=== PATIENT | male | born 1965 | race Caucasian/White ===

== ENCOUNTER → 2018-01-30 10:04 | Outpatient (CLI) | payer OTHER, SELFPAY ==
--- NOTE | 2018-01-30 | DI.RAD.S_ITS ---
PROCEDURE: XR CHEST 2V INDICATIONS: PROMINANCE OF LEFT ANT PROX RIB 4 TECHNIQUE: 2 views of the chest were acquired. COMPARISON: None. FINDINGS: Surgical changes and devices: None. Lungs and pleura: No pleural effusions or pneumothorax. Lungs are clear. Mediastinum: Mediastinal contours are normal. Heart size is normal. Bones and chest wall: No suspicious bony abnormalities. Soft tissues appear unremarkable. IMPRESSION: No acute disease. Dictated by: Charles Alexander M.D. on 01/30/2018 at 15:02 Approved by: Charles Alexander M.D. on 01/30/2018 at 15:03
== END ==
PROVIDERS: PCP Family Medicine; Visit Provider Family Medicine
DX: M95.4 Acquired deformity of chest and rib (principal)
CPT/HCPCS: 71046

== ENCOUNTER 2018-12-05 10:28 | Emergency (ER) | payer OTHER, SELFPAY ==
[2018-12-05 10:31] VITALS: BP 140/79; PULSE 66; RESP 14; TEMP 36.7; O2SAT 98
--- NOTE | 2018-12-05 11:01 | DI.CT.S_ITS ---
PROCEDURE: CT HEAD/BRAIN WO CON INDICATIONS: new onset dizzyness. No focal weakness. TECHNIQUE: Noncontrast 4.5 mm thick angled axial sections acquired from the foramen magnum to the vertex, with coronal and sagittal reformats. For radiation dose reduction, the following was used: automated exposure control, adjustment of mA and/or kV according to patient size. COMPARISON: None. FINDINGS: Image quality: Excellent. CSF spaces: Basal cisterns are patent. No extra-axial fluid collections. Ventricles are normal in size and shape. Brain: No midline shift. No intracranial masses or hemorrhage. Novoa-white matter interface is normal. Minimal atherosclerotic calcifications of the intracranial segments of the internal carotid arteries. Skull and face: Calvarium and visualized facial bones are intact, without suspicious lesions. Sinuses: Visualized sinuses and mastoids are clear. IMPRESSION: CT head without acute intracranial abnormalities. No mass, or mass effect. Dictated by: Cristian Kulkarni M.D. on 12/05/2018 at 10:53 Approved by: Cristian Kulkarni M.D. on 12/05/2018 at 10:54
[2018-12-05 11:52] VITALS: BP 138/87; PULSE 60; RESP 12
[2018-12-05] MEDS: SODIUM CHLORIDE 0.9% 1,000 ML 1000 ML IV (11:53)
[2018-12-05] MEDS: ONDANSETRON 4 MG/2 ML INJ IV (11:53)
[2018-12-05 12:14] LABS: Add Manual Diff / Slide Review NO; Basophils Absolute Auto 0 /uL (0-100); Basophils Percent Auto 0.5 % (0-2); Eosinophils Absolute Auto 200 /uL (0-450); Eosinophils Percent Auto 2.6 % (2-4); Hematocrit 53.9 % (41-53); Hemoglobin 18.2 g/dL (13.5-17.5); Lymphocytes Absolute Auto 1200 /uL (1100-4500); Lymphocytes Percent Auto 16.6 % (25-40); Mean Corpuscular HGB Conc 33.8 % (30-36); Mean Corpuscular Hemoglobin 30.6 PG (26-34); Mean Corpuscular Volume 90.5 fL (80-100); Monocytes Absolute Auto 600 /uL (0-900); Monocytes Percent Auto 8.6 % (3-14); Neutrophils Absolute Auto 5000 /uL (1500-7000); Neutrophils Percent Auto 71.7 % (50-75); Platelet Count 138 X10^3/uL (150-400); Red Blood Cell Count 5.96 X10^6/uL (4.5-5.9); Red Cell Distribution Width 13.9 % (11.6-14.8)
[2018-12-05 12:30] VITALS: BP 143/88; PULSE 58; RESP 14
[2018-12-05] MEDS: MECLIZINE HCL 12.5 MG TABLET 25 MG PO (12:32)
[2018-12-05 13:22] LABS: Alanine Aminotransferase 32 IU/L (21-72); Albumin 4.2 g/dL (3.5-5.0); Albumin Globulin Ratio 1.4 (1.0-2.8); Alkaline Phosphatase 29 U/L (38-126); Aspartate Aminotransferase 31 IU/L (17-59); Bilirubin Total 0.9 mg/dL (0.2-1.3); Blood Urea Nitrogen 16 mg/dL (9-20); Calcium 9.2 mg/dL (8.4-10.2); Carbon Dioxide 25 mmol/L (22-32); Chloride 102 mmol/L (98-107); Estimated Glomerular Filt Rate > 60.0 mL/min (>60); Globulin 3.1 g/dL (1.7-4.1); Glucose 96 mg/dL (70-100); HEMOLYSIS < 15 (0-50); Potassium 3.7 mmol/L (3.4-5.1); Sodium 138 mmol/L (137-145); Total Protein 7.3 g/dL (6.3-8.2)
[2018-12-05 13:33] LABS: Troponin I < 0.012 ng/mL (0.01-0.034)
--- NOTE | 2018-12-05 22:31 | ED.DIZZY ---
HPI - Dizziness <EVIE Lee - Last Filed: 12/05/18 22:52> General Chief Complaint: Dizziness Stated Complaint: Dizziness- sent from [facility] Time Seen by Provider: 12/05/18 12:11 Source: patient Mode of arrival: ambulatory Limitations: no limitations History of Present Illness HPI Narrative: This is a 53-year-old male, former smoker, who presents to ED with dizziness. Patient reports dizziness, spinning sensation with balance problem which got progressively worse today. Patient reports nausea as associated symptoms but denies chest pain, breathing difficulty, vomiting. Patient denies recent ear infection or upper respiratory infection. He reports has chronic problem with ear/nose/throat and has been seeing his provider for this. 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 Patient denies vision change, speech difficulty, weakness to 1 side side of body, facial droops, headache, or fever. Patient once had vertigo in the past when he had ear infection. Patient reports the dizziness/spinning sensation gets worse with changing with position and head movements. Related Data Home Medications Medication Instructions Recorded Confirmed aspirin [Adult Low Dose Aspirin] 81 mg PO DAILY 12/05/18 12/05/18 atorvastatin 20 mg PO DAILY 12/05/18 12/05/18 bupropion HCl (smoking deter) 150 mg PO BID 12/05/18 12/05/18 lisinopril 20 mg PO DAILY 12/05/18 12/05/18 Previous Rx's Medication Instructions Recorded meclizine 25 mg PO BID-QID PRN #10 tab 12/05/18 ondansetron 4 mg PO Q6-8H PRN #7 tab 12/05/18 Allergies Allergy/AdvReac Type Severity Reaction Status Date / Time Penicillins Allergy Unknown Verified 12/05/18 10:35 codeine AdvReac Intermediate Vomiting Verified 12/05/18 10:35 Milk Containing Products AdvReac Intermediate Gastrointestinal Verified 12/05/18 10:35 Upset Review of Systems <EVIE Lee - Last Filed: 12/05/18 22:52> Review of Systems Narrative: General: Denies fever, chills, fatigue, malaise, sweats. HEENT: Denies sinus pain, ear pain, sore throat, difficulty swallowing. Reports dizziness. Respiratory: Denies dyspnea, cough, wheezing, hemoptysis, sputum. Cardiovascular: Denies chest pain, palpitations, orthopnea, edema. Gastrointestinal: Reports nausea but no vomiting Denies abdominal pain, diarrhea, constipation, melena. : Denies dysuria, frequency, incontinence, hematuria, urinary retention. Musculoskeletal: Denies weakness, joint pain or bony pain. Skin: Denies rash, skin lesions, or other. Neurologic: Denies weakness, headache, numbness, change in speech, confusion, seizures, incoordination. Psychiatric: No concerning psychosocial issues. 12-point review of systems is negative except for those stated above. PFSH <EVIE Lee - Last Filed: 12/05/18 22:52> Surgical History H/O sinus surgery (Acute) History of tonsillectomy and adenoidectomy (Acute) Social History Smoking Status: Current every day smoker Social History Smoking Status: Former smoker Exam <EVIE Lee - Last Filed: 12/05/18 22:52> Narrative Exam Narrative: GEN: Alert, oriented x 3, well appearing and nourished, and in no acute distress. Head: Normal cephalic, atraumatic. No scalp or temporal tenderness, palpable mass or rash. EYES: Pupils are equal, round, and reactive to light and accommodation. Extraocular muscles are intact bilaterally. There is no subconjunctival hemorrhage, exudate and sclera non-icteric. ENT: Bilateral auditory canals and tympanic membranes clear. Hearing grossly intact. Nose without bleeding, purulent discharge, septal hematoma or deviation. Turbinate without erythema or swelling. Facial sinuses nontender to palpate. Mucous membrane moist, no mucosal lesion. Throat without erythema, tonsillar hypertrophy or exudate. Uvula in midline, airway patent. Neck: Trachea in midline. No JVD, non-tender without lymphadenopathy. No masses or thyroid megaly. Supple, non-tender and no meningeal signs. CARDIAC: Normal regular rate and rhythm without murmurs, gallops, or rubs. No chest wall tenderness. No peripheral edema, cyanosis or pallor. Capillary refill is less than 2 seconds. No carotid bruits. RESPIRATORY: Lungs are cleat to auscultate bilaterally. No cough, wheezes, rales, or rhonchi. No stridor, respiratory distress, increase work of breathing, or accessary muscle used. ABD: Abdomen soft, nontender and non-distended. No guarding or rebound tenderness to palpate. Bowel sounds are normal in all 4 quadrants. There is no palpable masses or organomegaly. EXT: Full painless ROM of all extremities with no loss of sensation, strength, effusion or edema. SKIN: Warm, dry, normal color for patient. No erythema, lesions or rash. BACK: Nontender without deformity or crepitance. No flank tenderness. NEUROLOGICAL: Alert and oriented to place, time and person. No facial droops, dysphasia. CN II-XII intact. Strength and sensation symmetric and intact throughout. Reflexes 2+ throughout. Cerebellar testing normal. PSYCHIATRIC: Good judgement and reason, without hallucinations, abnormal affect or abnormal behaviors during the examination. Initial Vital Signs Initial Vital Signs: Vital Signs Temperature 98.1 F 12/05/18 10:31 Pulse Rate 66 12/05/18 10:31 Respiratory Rate 14 12/05/18 10:31 Blood Pressure 140/79 12/05/18 10:31 Pulse Oximetry 98 12/05/18 10:31 <Paige Reyna DO - Last Filed: 12/06/18 19:14> Initial Vital Signs Initial Vital Signs: Vital Signs Temperature 98.1 F 12/05/18 10:31 Pulse Rate 66 12/05/18 10:31 Respiratory Rate 14 12/05/18 10:31 Blood Pressure 140/79 12/05/18 10:31 Pulse Oximetry 98 12/05/18 10:31 Scores <EVIE Lee - Last Filed: 12/05/18 22:52> GCS Eladio coma scale eye opening: Spontaneous Eladio coma scale verbal response: Orientated Napoleon coma scale motor response: Obey commands Eladio coma scale total score: 15 NIH Stroke Scale Level of Conciousness: Alert, keenly responsive Ask month/age: Answers both questions correctly. Open/close eyes, close hand: Performs both tasks correctly Best gaze horizontal: Normal Visual ribeiro: No visual loss Facial palsy: Normal symetrical movement Left arm drift: No drift for full 10 sec Right arm drift: No drift for full 10 sec Left leg drift: No drift for full 10 sec Right leg drift: No drift for full 10 sec Limb ataxia: Absent Sensory on face/arms/legs: Normal, no sensory loss Best language: No aphasia, normal Dysarthria: Normal Extinction or inattention: No abnormality Total NIH Stroke scale score: 0 Course <EVIE Lee - Last Filed: 12/05/18 22:52> Orders Ordered: Discontinued Medications Sodium Chloride (Normal Saline 0.9%) 1,000 mls @ 1,000 mls/hr IV BOLUS ONE Stop: 12/05/18 12:01 Last Infusion: 12/05/18 13:25 Dose: 0 mls/hr Documented by: Admin: 12/05/18 11:53 Dose: 1,000 mls/hr Documented by: HOMERO Meclizine HCl (Antivert) 25 mg PO NOW ONE Stop: 12/05/18 12:28 Last Admin: 12/05/18 12:32 Dose: 25 mg Documented by: HOMERO Ondansetron HCl (Zofran) 4 mg IV NOW ONE Stop: 12/05/18 11:03 Last Admin: 12/05/18 11:53 Dose: 4 mg Documented by: HOMERO <Paige Reyna DO - Last Filed: 12/06/18 19:14> Orders Ordered: Discontinued Medications Sodium Chloride (Normal Saline 0.9%) 1,000 mls @ 1,000 mls/hr IV BOLUS ONE Stop: 12/05/18 12:01 Last Infusion: 12/05/18 13:25 Dose: 0 mls/hr Documented by: Admin: 12/05/18 11:53 Dose: 1,000 mls/hr Documented by: HOMERO Meclizine HCl (Antivert) 25 mg PO NOW ONE Stop: 12/05/18 12:28 Last Admin: 12/05/18 12:32 Dose: 25 mg Documented by: HOMERO Ondansetron HCl (Zofran) 4 mg IV NOW ONE Stop: 12/05/18 11:03 Last Admin: 12/05/18 11:53 Dose: 4 mg Documented by: HOMERO MDM - Dizziness <EVIE Lee - Last Filed: 12/05/18 22:52> Differential Diagnosis Differential diagnosis: Likely benign paroxysmal positional vertigo, orthostatic hypotension and cerebrovascular accident Medical Records Attestation: I reviewed the patient's medical records. Lab Data Attestation: I reviewed the patient's lab results. Result diagrams: 12/05/18 11:45 12/05/18 11:45 Labs: Lab Results 12/05/18 12/05/18 Range/Units 11:45 11:45 WBC 7.0 (4.5-11.0) X10^3/uL RBC 5.96 H (4.5-5.9) X10^6/uL Hgb 18.2 H (13.5-17.5) g/dL Hct 53.9 H (41-53) % MCV 90.5 (80-100) fL MCH 30.6 (26-34) PG MCHC 33.8 (30-36) % RDW 13.9 (11.6-14.8) % Plt Count 138 L (150-400) X10^3/uL Neut % (Auto) 71.7 (50-75) % Lymph % (Auto) 16.6 L (25-40) % Sunflower % (Auto) 8.6 (3-14) % Eos % (Auto) 2.6 (2-4) % Baso % (Auto) 0.5 (0-2) % Neut # (Auto) 5000 (0008-3674) /uL Lymph # (Auto) 1200 (7778-9990) /uL Sunflower # (Auto) 600 (0-900) /uL Eos # (Auto) 200 (0-450) /uL Baso # (Auto) 0 (0-100) /uL Sodium 138 (137-145) mmol/L Potassium 3.7 (3.4-5.1) mmol/L Chloride 102 (98-107) mmol/L Carbon Dioxide 25 (22-32) mmol/L BUN 16 (9-20) mg/dL Creatinine 0.80 (0.66-1.25) mg/dL Estimated GFR > 60.0 (>60) mL/min BUN/Creatinine Ratio 20.0 (6-22) Glucose 96 (70-100) mg/dL Calcium 9.2 (8.4-10.2) mg/dL Total Bilirubin 0.9 (0.2-1.3) mg/dL AST 31 (17-59) IU/L ALT 32 (21-72) IU/L Alkaline Phosphatase 29 L (38-126) U/L Troponin I < 0.012 (0.01-0.034) ng/mL Total Protein 7.3 (6.3-8.2) g/dL Albumin 4.2 (3.5-5.0) g/dL Globulin 3.1 (1.7-4.1) g/dL Albumin/Globulin Ratio 1.4 (1.0-2.8) Urine Dip Bedside Urine Glucose Negative Bedside Urine Bilirubin - Negative Bedside Urine Ketone + 15 Urine Specific [place] 1.015 Bedside Urine Occult Blood - Negative Bedside Urine pH 6.0 Bedside Urine Protein - Negative Bedside Urine Urobilinogen - Negative Bedside Urine Nitrite - Negative Bedside Urine Leukocytes - Negative Esterase Imaging Data CT scan - head: Radiologist's impression: [address] [address] [address] Scan Report Signed Patient: Venkat Wood [facility]#: [id number] : 1965Acct:[id number] Age/Sex: 53 / MDate of Service: 12/05/18 Loc: ED Accession Number: [id number] Procedure: CT head/brain wo con Ordering Provider: Andrea Colunga PROCEDURE: CT HEAD/BRAIN WO CON INDICATIONS: new onset dizzyness. No focal weakness. TECHNIQUE: Noncontrast 4.5 mm thick angled axial sections acquired from the foramen magnum to the vertex, with coronal and sagittal reformats. For radiation dose reduction, the following was used: automated exposure control, adjustment of mA and/or kV according to patient size. COMPARISON: None. FINDINGS: Image quality: Excellent. CSF spaces: Basal cisterns are patent. No extra-axial fluid collections. Ventricles are normal in size and shape. Brain: No midline shift. No intracranial masses or hemorrhage. Novoa-white matter interface is normal. Minimal atherosclerotic calcifications of the intracranial segments of the internal carotid arteries. Skull and face: Calvarium and visualized facial bones are intact, without suspicious lesions. Sinuses: Visualized sinuses and mastoids are clear. IMPRESSION: CT head without acute intracranial abnormalities. No mass, or mass effect. Dictated by: Cristian Kulkarni M.D. on 12/05/2018 at 10:53 Approved by: Cristian Kulkarni M.D. on 12/05/2018 at 10:54 ECG Data Attestation: I personally reviewed and interpreted this ECG as follows: Prior ECG tracings: not available for review Interpretation: Sinus Seth rate at 58. Normal [place]. No ST elevation or depression. LV hypertrophy. MDM Narrative Medical decision making narrative: This patient presents to ED with vertigo symptoms that started last night which progressively got worsen with nausea. He does not exhibit focal neural deficit and and NIH score was 0 with GCS 15. Patient does not endorse headache, sensation deficit or vision change. EKG was sinus bradycardia rate of [address] elevation or depression. Cardiac enzymes were negative. Electrolyte was unremarkable. The patient's H&H was mildly elevated and he is currently being evaluated for elevated H&H and low platelet level. Head CT shows no acute findings such as mass or bleeding. Patient was medicated with Zofran, IV hydration and meclizine. Patient was able to ambulate to the bathroom in stable gait after the treatment. Urine test shows no infection. Findings were discussed with patient and patient is being discharged to home with vertigo and discharged to home with meclizine and Zofran. Return precautions were discussed with the patient and advised to follow with primary care physician if vertigo symptoms persists for possible referral to ENT specialist or physical therapist. Patient verbalized the understanding and agrees with treatment plan. <Paige Reyna, DO - Last Filed: 12/06/18 19:14> Lab Data Labs: Lab Results 12/05/18 12/05/18 Range/Units 11:45 11:45 WBC 7.0 (4.5-11.0) X10^3/uL RBC 5.96 H (4.5-5.9) X10^6/uL Hgb 18.2 H (13.5-17.5) g/dL Hct 53.9 H (41-53) % MCV 90.5 (80-100) fL MCH 30.6 (26-34) PG MCHC 33.8 (30-36) % RDW 13.9 (11.6-14.8) % Plt Count 138 L (150-400) X10^3/uL Neut % (Auto) 71.7 (50-75) % Lymph % (Auto) 16.6 L (25-40) % Sunflower % (Auto) 8.6 (3-14) % Eos % (Auto) 2.6 (2-4) % Baso % (Auto) 0.5 (0-2) % Neut # (Auto) 5000 (6275-4423) /uL Lymph # (Auto) 1200 (4537-0303) /uL Sunflower # (Auto) 600 (0-900) /uL Eos # (Auto) 200 (0-450) /uL Baso # (Auto) 0 (0-100) /uL Sodium 138 (137-145) mmol/L Potassium 3.7 (3.4-5.1) mmol/L Chloride 102 (98-107) mmol/L Carbon Dioxide 25 (22-32) mmol/L BUN 16 (9-20) mg/dL Creatinine 0.80 (0.66-1.25) mg/dL Estimated GFR > 60.0 (>60) mL/min BUN/Creatinine Ratio 20.0 (6-22) Glucose 96 (70-100) mg/dL Calcium 9.2 (8.4-10.2) mg/dL Total Bilirubin 0.9 (0.2-1.3) mg/dL AST 31 (17-59) IU/L ALT 32 (21-72) IU/L Alkaline Phosphatase 29 L (38-126) U/L Troponin I < 0.012 (0.01-0.034) ng/mL Total Protein 7.3 (6.3-8.2) g/dL Albumin 4.2 (3.5-5.0) g/dL Globulin 3.1 (1.7-4.1) g/dL Albumin/Globulin Ratio 1.4 (1.0-2.8) Urine Dip Bedside Urine Glucose Negative Bedside Urine Bilirubin - Negative Bedside Urine Ketone + 15 Urine Specific [place] 1.015 Bedside Urine Occult Blood - Negative Bedside Urine pH 6.0 Bedside Urine Protein - Negative Bedside Urine Urobilinogen - Negative Bedside Urine Nitrite - Negative Bedside Urine Leukocytes - Negative Esterase Discharge Plan Departure Patient Disposition: Home Clinical Impression: Vertigo Discharge Date/Time: 12/05/18 14:29 Instructions: DI for Vertigo Activity Restrictions/Additional Instructions: You have been diagnosed with [dizziness and vertigo. The head CT is negative, EKG was normal and blood tests were unremarkable]. What to do: *Take your medications as directed. Please take meclizine and Zofran as needed for dizziness and nausea. *Follow up with your primary care provider in 2-3 days, call for an appointment. Let them know you were seen in the ED and that we asked you to be seen in follow up. *Return to ED if you have any new, worsening, or concerning symptoms, such as [increasing dizziness, spinning sensation, chest pain, breathing difficulty, unable to tolerate fluids, weakness to 1 side of body, speech difficulty, facial droops, vision change, or any acute concerns]. Prescriptions: New meclizine 25 mg tablet 25 mg PO BID-QID PRN (Reason: dizziness) Qty: 10 RF: 0 ondansetron 4 mg tablet,disintegrating 4 mg PO Q6-8H PRN (Reason: nausea and vomiting) Qty: 7 RF: 0 No Action atorvastatin 20 mg tablet 20 mg PO DAILY RF: 0 lisinopril 20 mg tablet 20 mg PO DAILY RF: 0 aspirin [Adult Low Dose Aspirin] 81 mg Tablet,Delayed Release (Dr/Ec) 81 mg PO DAILY RF: 0 bupropion HCl (smoking deter) 150 mg tablet extended release 12 hr 150 mg PO BID RF: 0 Referrals: Clare Donaldson MD [Primary Care Provider] -
== END 2018-12-05 14:29 | disposition home or self-care (01) ==
PROVIDERS: Emergency Medicine; Emergency Provider Nurse Practitioner Family; PCP Student in an Organized Health Care Education/Training Program
DX: R42 Dizziness and giddiness (principal)
CPT/HCPCS: 36591; 70450; 80053; 81003; 84484; 85025; 93005; 96361; 96374; 99283; 99284; J2405

== ENCOUNTER 2019-04-14 10:51 | Day surgery (SDC) | payer OTHER, SELFPAY ==
[2019-03-08 12:45] VITALS: BMI 26.7
[2019-04-14 11:16] VITALS: BP 160/97; PULSE 88; RESP 16; TEMP 36.4; O2SAT 97; BMI 26.5
[2019-04-14] MEDS: LACTATED RINGERS 1,000 ML 100 ML IV (11:28)
--- NOTE | 2019-04-14 12:48 | PM.HP.1 ---
History of Present Illness History of Present Illness Date Patient Seen: 04/14/19 Time Patient Seen: 12:48 Chief complaint: [id number] Narrative: This is a 53-year-old man with history of smoking, recently quit on Chantix, hypertension, and asthma. He is here for repair of an umbilical hernia. He 1st noticed a bulge in the umbilicus about 1 year ago. He denies any symptoms of obstruction or incarceration. It causes him moderate pain and discomfort. He works full-time as an EMT and likes to exercise. He continually becomes more bothersome with time. He has recently quit smoking. He denies any chronic cough, constipation, or other sources of straining aside from his job and exercise. ROS: Thirteen system review is negative other than as mentioned in HPI. PE: GENERAL: Well groomed and cooperative. Appears stated age. Answers questions promptly and appropriately. Vital signs noted. HENT: Normocephalic, atraumatic. Hearing intact. Oral mucosa is pink and moist. EYES: Conjunctiva pink, sclera white, no periorbital swelling. CARDIOVASCULAR: Regular rate. No pedal edema. RESPIRATORY: Normal respiratory rate, breathing comfortably on room air. GASTROINTESTINAL: Abdomen soft and non-distended; reducible 2cm umbilical hernia; no rectus diastasis GENITALURINARY: No flank tenderness. MUSCULOSKELETAL: Normal gait and coordination. Equal tone and mass bilaterally. SKIN: Warm, dry, soft, appropriate color for ethnicity. No other lesions, rashes, or wounds. NEURO: Alert and Oriented X 3. Good coordination. No ataxia, or sensory deficits, or cognitive issues. PSYCH: Appropriate affect and mood. Patient History Medical History Asthma (Acute) Depression (Acute) Hyperlipidemia (Acute) Hypertension (Acute) Hypogonadism in male (Acute) Umbilical hernia (Acute) Surgical History H/O sinus surgery (Acute) History of tonsillectomy and adenoidectomy (Acute) Hx of nasal septoplasty (Acute) Hx of thumb surgery (Acute) Family & Social History Family History Father Alcoholism Depression Heart disease Hypertension Brother Heart disease Hypertension Social History: household members spouse Tobacco & Substance use: Smoking Status Former smoker alcohol intake former alcohol intake frequency 0-2 drinks per day Substance Use Type does not use Meds Home Medications and Allergies Home Medications Medication Instructions Recorded Confirmed Type aspirin [Adult Low Dose Aspirin] 81 mg PO DAILY 12/05/18 04/14/19 History atorvastatin 20 mg PO DAILY 12/05/18 04/14/19 History bupropion HCl (smoking deter) 150 mg PO BID 12/05/18 04/14/19 History lisinopril 20 mg PO DAILY 12/05/18 04/14/19 History ondansetron 4 mg PO Q6-8H PRN #7 tab 12/05/18 03/25/19 Rx albuterol sulfate [Ventolin HFA] 1 puff INHALATION Q6H PRN 12/07/18 03/25/19 History beclomethasone dipropionate [Qvar 2 puff INHALATION BID 12/07/18 03/25/19 History RediHaler] testosterone cypionate 100 mg IM Q7D 12/07/18 04/14/19 History multivitamin 1 cap PO DAILY 01/01/19 04/14/19 History varenicline [Chantix] 0.5 mg PO DAILY 04/14/19 04/14/19 History Allergies Allergy/AdvReac Type Severity Reaction Status Date / Time Penicillins Allergy Severe Gastrointestinal Verified 04/14/19 11:15 Upset codeine AdvReac Intermediate Vomiting Verified 04/14/19 11:05 Milk Containing Products AdvReac Intermediate Gastrointestinal Verified 04/14/19 11:05 Upset Benzodiazepines AdvReac Verified 04/14/19 11:12 Exam Vital Signs (past 8 hours): - 04/14/19 11:16 Temperature 97.6 F Pulse Rate 88 Respiratory Rate 16 Blood Pressure 160/97 H Pulse Oximetry 97 Oxygen Delivery Method Room Air Assessment & Plan Assessment and plan (1) Umbilical hernia: Qualifiers: Obstruction and gangrene presence: without obstruction or gangrene Qualified Code(s): K42.9 - Umbilical hernia without obstruction or gangrene Current visit: No Status: Acute (2) Erythrocytosis: Current visit: No Status: Acute Assessment & Plan narrative: This is a 53-year-old man here for repair of an umbilical hernia. Risks and benefits of umbilical hernia repair have been discussed. The plan is for an open umbilical hernia repair with mesh. Risk of bleeding, infection, need for additional procedures, hernia recurrence, risk of mesh infection, risk of anesthesia were discussed. Time Spent With Patient Time with patient: 15-24 minutes Quality VTE Deep Vein Thrombosis/Pulmonary Embolism Present on Admission: No
--- NOTE | 2019-04-14 13:05 | SUR.OPER ---
Supine on padded OR bed, head on pillow, arms secured on padded arm boards at <90 degrees abduction, legs uncrossed, safety belt at thigh, tape over blanket over lower legs.
[2019-04-14] MEDS: CEFAZOLIN 2 GM/100 ML FROZ.PIGGY IV (13:22)
[2019-04-14] MEDS: BUPIVACAINE 0.25% W/ EPI (PF) 10 ML VIAL 30 ML INJ (13:40)
[2019-04-14] MEDS: BUPIVACAINE LIPOSOME 266 MG/20 ML VIAL INJ (13:48)
[2019-04-14 14:12] VITALS: BP 122/81; PULSE 75; RESP 12; TEMP 36.3
--- NOTE | 2019-04-14 14:13 | P.OP_ITS ---
Operative Date/Time/Diagnoses Date of procedure: 04/14/19 Time of procedure: 14:13 Pre-op diagnosis: Umbilical hernia Post-op diagnosis: other (1cm umbilical hernia with incarcerated preperitoneal fat) Procedure & Clinicians Procedure: Open primary repair of umbilical hernia with incarcerated perperitoneal fat Same procedure as scheduled: Yes Indications: Symptomatic umbilical hernia Surgeon: Dione Gr Click Yes if Unassisted: Yes Anesthesia Type: General Operative Notes Findings: 1cm umbilical hernia defect with incarcerated fat Closure Type: primary Specimen(s): none sent Estimated Blood Loss (mL): 1 Blood products transfused: none Procedure in detail: The patient was brought to the operating room, placed supine on the operating table, and sequential compression devices were placed on both legs and turned on. Appropriate perioperative antibiotics were given. General anesthesia was induced by the anesthesiologist and the patient was intubated with an LMA. The abdomen was then prepped and draped in sterile fashion, and a surgical time-out was conducted. At this point local anesthetic was injected using 0.25% Marcaine with epi, a at the site of the planned incision. A 3cm transverse curvilinear incision was then made in the skin on the superior border of the umbilicus. Dissection was then carried down through the dermis and subcutaneous tissue, and the umbilical hernia sac was encountered. The sac was incarcerated with preperitoneal fat, and was densely adherent to the posterior surface of the umbilical skin. This was carefully dissected free without buttonholing the skin, and once it was freed it was finally reducible. Once reduced it was clear that the size of the umbilical hernia was about 1 cm. I measured it with a ruler and it was in fact 1 cm in diameter. The decision was then made to close this primarily as mesh is not indicated in an umbilical hernia less than 1.5 cm in size. 0 Prolene suture was used to close the umbilical defect. Exparel was injected into the abdominal wall in numerous tiny aliquots, circumferentially. The overlying subcutaneous tissue was then closed together using 3 0 Vicryl suture, and the umbilical skin was tacked down to the fascia using 3 0 Vicryl. The remaining 0.25% Marcaine for a total of 30 mL was injected in the abdominal wall and surrounding subcutaneous fat and skin. Excess skin of the umbilicus was trimmed. The skin was then closed with a subcuticular running 4-0 Monocryl suture. The skin edges were then sealed with Dermabond. This concluded the procedure. The patient was awakened from anesthesia and extubated. He was transferred onto his [facility]. Two cotton balls were placed in the umbilicus after the Dermabond had dried. The cotton balls were secured in place with a Tegaderm. The patient was then transferred to the postanesthesia care unit in stable condition. He tolerated the procedure well. Needle sponge and instrument counts were correct x2 at the end of the case. Complications: none Post-operative Condition: stable Disposition: PACU
[2019-04-14 14:17] VITALS: BP 130/85; PULSE 75; RESP 10; O2SAT 95
[2019-04-14 14:22] VITALS: BP 117/83; PULSE 77; RESP 9; O2SAT 95
[2019-04-14 14:38] VITALS: BP 117/82; PULSE 77; RESP 15; O2SAT 94
[2019-04-14 15:15] VITALS: BP 122/76; PULSE 70; RESP 16; TEMP 36.7; O2SAT 96
== END 2019-04-14 15:35 | disposition home or self-care (01) ==
PROVIDERS: PCP Student in an Organized Health Care Education/Training Program; Visit Provider Surgery
PROC: (CPT 49585; principal; 2019-04-14 13:15)
DX: K42.9 Umbilical hernia without obstruction or gangrene (principal); D75.1 Secondary polycythemia; I10 Essential (primary) hypertension; J45.909 Unspecified asthma, uncomplicated; Z87.891 Personal history of nicotine dependence
CPT/HCPCS: 49585; C9290; J0690; J1100; J1885; J2405; J2704; J3010

== ENCOUNTER → 2020-05-18 13:55 | Outpatient (CLI) | payer OTHER, SELFPAY ==
[2020-05-18 14:45] LABS: COVID19 -Nasal RAPID Negative (Negative)
== END ==
PROVIDERS: PCP Student in an Organized Health Care Education/Training Program; Visit Provider Physician Assistant
DX: Z20.822 Contact with and (suspected) exposure to COVID-19 (principal)
CPT/HCPCS: 87635

== ENCOUNTER 2020-05-19 14:55 | Day surgery (SDC) | payer OTHER, SELFPAY ==
[2020-05-19] VITALS (9 sets, daily range): BP systolic 85–129; BP diastolic 36–85; PULSE 64–95; RESP 12–24; TEMP 36.2–37.4; O2SAT 94–100; BMI 25.7
--- NOTE | 2020-05-19 | PATH_ITS ---
[facility] Accession Number: [id number] . 01 Material submitted: . sigmoid colon - SIGMOID COLON 2MM . 02 Diagnosis: Sigmoid Colon 2 mm: Superficial portion of colorectal mucosa with scattered benign lymphoid aggregates and patchy mild hyperplastic mucosal change. Additional levels through the block are noncontributory. MRV 05/29/2020 1424 Local . 02 Electronically signed: . Koki Gamboa MD, Pathologist NPI- [id number] . 01 Gross description: . SIGMOID COLON 2MM: Received in formalin is 1 fragment(s) of dyer, soft tissue measuring 0.4 x 0.2 x 0.1 cm submitted entirely in 1 cassette(s) /AMEENA 05/23/20202035 Local . 02 Pathologist provided ICD-10: Z12.11, K63.5 . 02 CPT . 309418 Performed at: 01 [facility] [address] [facility], [place], [place] [id number] MD Mj Rosenberg MD Phone: [phone] Performed at: 02 [facility] [address] [place], [place] [id number] MD Jeanne Quinones MD Phone: [phone]
--- NOTE | 2020-05-19 12:40 | P.HP_ITS ---
History of Present Illness History of Present Illness Date Patient Seen: 05/19/20 Chief complaint: SDC Narrative: 54 year old male comes in today for consideration of a screening colonoscopy. There have been no lower GI symptoms suggesting disease such as change in bowel habits, bleeding, abdominal pain or anemia. There's been no family history of colon cancer or colon polyps. Overall health issues have been stable, including no major cardiac events for at least 6 weeks. PCP: Dr. Donaldson Past medical history: ADD Thrombocytopenia Elevated hemoglobin Umbilical hernia Hyperlipidemia Hypertension Asthma, intermittent, mild Hypogonadism Degenerative disc disease, cervical Depression Tobacco use disorder History of alcoholism BPPV Past surgical history: Right hand rebuild, 1995 Bilateral sinus septoplasty and tonsillectomy, 2005 Umbilical hernia repair, 2019 Family history: No colon cancer colon polyps Social history: , 1 grown child. Taking care of his 2 biological grandchildren which he is in the process of adopting. Patient History Medical History (Updated 05/19/20 @ 14:50 by Jagruti Abreu RN) Alcoholism Asthma Depression Depression, major, recurrent, mild Disc disease with myelopathy Elevated hemoglobin History of smoking Hyperlipidemia Hypertension Hypogonadism in male Thrombocytopenia Surgical History (Updated 05/19/20 @ 14:50 by Jagruti Abreu RN) H/O sinus surgery H/O umbilical hernia repair History of tonsillectomy and adenoidectomy Hx of nasal septoplasty Hx of thumb surgery Family & Social History Family History Father Alcoholism Depression Heart disease Hypertension Brother Heart disease Hypertension Mother Alcoholism Family/Other Substance abuse Social History: household members spouse Tobacco & Substance use: Smoking Status Former smoker alcohol intake former alcohol intake frequency 0-2 drinks per day Substance Use Type does not use Meds Home Medications and Allergies Home Medications Medication Instructions Recorded Confirmed Type aspirin [Adult Low Dose Aspirin] 81 mg PO DAILY 12/05/18 05/19/20 History atorvastatin 20 mg PO DAILY 12/05/18 05/19/20 History bupropion HCl (smoking deter) 150 mg PO BID 12/05/18 05/19/20 History lisinopril 20 mg PO DAILY 12/05/18 05/19/20 History Qvar RediHaler 2 puff INHALATION BID 12/07/18 05/19/20 History albuterol sulfate [Ventolin HFA] 1 puff INHALATION Q6H PRN 12/07/18 05/19/20 History testosterone cypionate 100 mg IM Q7D 12/07/18 05/19/20 History docusate sodium 100 mg PO BID #60 cap 04/14/19 05/19/20 Rx tramadol 50 mg PO Q4-6H PRN #30 tab 04/14/19 05/19/20 Rx methylphenidate HCl 5 mg PO DAILY 05/19/20 05/19/20 History Allergies Allergy/AdvReac Type Severity Reaction Status Date / Time Penicillins Allergy Severe Gastrointestinal Verified 05/19/20 15:13 Upset vilazodone Allergy Unknown Unlisted Verified 05/19/20 15:13 codeine AdvReac Intermediate Vomiting Verified 05/19/20 15:13 Milk Containing Products AdvReac Intermediate Gastrointestinal Verified 05/19/20 15:13 Upset Benzodiazepines AdvReac Verified 05/19/20 15:13 Review of Systems Review of Systems ROS: Yes All systems reviewed with the patient and are negative except as otherwise documented Exam Narrative Exam Narrative: GENERAL: Alert and oriented, appearing stated age and in no acute distress. HEENT: Head normocephalic/atraumatic. Pupils equal, round, and reactive to light and accomodation. Extraocular muscles intact. Tympanic membranes clear. Nasal mucosa moist, septum midline. Oral mucosa moist, no lesions. Neck soft and supple, no lymphadenopathy. LUNGS: Clear to ausculation bilaterally, no wheezes, rhonchi or rales. CV: Normal S1 and S2 with regular rate and rhythm, no audible murmurs, rubs or gallops. ABDOMEN: Soft, non-tender, non-distended, no organomegaly. Positive bowel sounds. EXTREMITIES: No clubbing, cyanosis, or edema. NEURO: Cranial nerves II through XII grossly intact, no focal deficits. PSYCH: Alert and oriented x 3. SKIN: No concerning lesions. Assessment & Plan Assessment & Plan narrative: 1. Screening for colon cancer 2. History of alcoholism Plan for colonoscopy. The nature and character of the procedure as well as anticipated results were discussed. The possibility of not completing the procedure was also discussed. Possible complications including aspiration pneumonia, bleeding, perforation and reaction to medications either for sedation or preparation and missed lesions were discussed. Questions were answered and proceeding to the colonoscopy was elected. Informed consent signed. Due to patient's history of significant alcoholism and past history of difficu lty with anesthesia inductions, will consult MD anesthesia for this high risk patient. I sincerely appreciate the referral allowing me to participate in this patient's care. Please contact me with any questions or concerns.
--- NOTE | 2020-05-19 12:44 | PM.OP.ENDO ---
Operative Date/Time/Diagnoses Date of procedure: 05/19/20 Procedure Notes SCOAP/Timeout: 4:09 pm Procedure in detail: ENDOSCOPIST: lCare Donaldson MD Anesthesiologist: Dr. Fernandez Sedation start time: 4:10 p.m. Sedation end time: 4:30 p.m. PROCEDURE: Colonoscopy with biopsy INDICATIONS: 1. Screening for colon cancer 2. History of alcoholism MEDICATION: Levsin 0.125 mg sublingual, incremental doses of Versed and fentanyl until appropriate level sedation achieved. ASA CLASS: 2 CECAL WITHDRAWAL TIME: 15 minutes COMPLICATIONS: None. EXTENT OF PROCEDURE: Cecum. QUALITY OF PREP: Good with portions of liquid stool. PROCEDURE: Prior to insertion of the colonoscope, a digital rectal examination was accomplished with circumferential palpation of the distal rectal mucosa without significant findings being noted. The high-definition colonoscope was passed into the rectum in the usual fashion and advanced over to the cecum without difficulty. The ileocecal valve, appendiceal stoma, and medial wall all could be inspected and at first there appeared to be a polypoid mass on the IC valve. It was injected with 2 cc of methylene blue and it had uniform uptake in the portion that appeared polypoid, making the likelihood of it being a polyp low. It then completely flattened out and took on the usual appearance of a normal IC valve. No biopsy taken. ASCENDING COLON: As the colonoscope was withdrawn, care was taken to expose and inspect the haustral folds and no abnormalities were seen. HEPATIC FLEXURE: Normal, no polyps, diverticula or other abnormalities. TRANSVERSE COLON: Normal, no polyps, diverticula or other abnormalities. DESCENDING COLON: Normal, no polyps, diverticula or other abnormalities. SIGMOID COLON: Sigmoid polyp x1, 2 mm. Otherwise, normal, no diverticula or other abnormalities. RECTUM: Normal. J maneuver was produced. There was no significant perianal disease. The J maneuver was broken. The remainder of the rectum was inspected and there was no external hemorrhoid disease. The scope was withdrawn. IMPRESSION: 1. Sigmoid polyp x1, 2 mm 2. Polypoid mass on IC valve, after methylene blue lift, uniform uptake in the polypoid portion making likelihood of polyp low. Mass also flattened out and took on the appearance of normal IC valve. No biopsy taken. PLAN: 1. Follow-up in clinic status post pathology results. The possibility of a missed lesion including a malignancy has been discussed with the patient previously. Potential alarm symptoms have been discussed and should be reported immediately.
[2020-05-19] MEDS: LACTATED RINGERS 1,000 ML 200 ML IV ×2 (15:23→17:05)
[2020-05-19] MEDS: HYOSCYAMINE 0.125 MG TABLET PO (15:26)
[2020-05-19] MEDS: METHYLENE BLUE 50 MG/10 ML VIAL 10 MG IV (16:33)
--- NOTE | 2020-05-19 17:07 | SUR.PHASEI ---
Received to PACU after MAC. Report received from Dr Fernandez and Isabel RN. O2 sats on room air 90%. Placed on 6L simple mask per Dr Fernandez. SBP 80-90's. Dr Fernandez aware. IV fluids increased.
== END 2020-05-19 17:44 | disposition home or self-care (01) ==
PROVIDERS: PCP Student in an Organized Health Care Education/Training Program; Referring Provider Student in an Organized Health Care Education/Training Program; Visit Provider Student in an Organized Health Care Education/Training Program
PROC: 0DJD8ZZ Inspection of Lower Intestinal Tract, Via Natural or Artificial Opening Endoscopic (ICD-10-PCS; CPT 45378; principal; 2020-05-19 16:00)
DX: Z12.11 Encounter for screening for malignant neoplasm of colon (principal); J45.909 Unspecified asthma, uncomplicated; I10 Essential (primary) hypertension; E78.5 Hyperlipidemia, unspecified; K63.5 Polyp of colon
CPT/HCPCS: 45380; 45381; J2704; J3010; Q9968

== ENCOUNTER → 2020-07-05 14:53 | Outpatient (CLI) | payer OTHER, SELFPAY ==
--- NOTE | 2020-07-05 14:55 | DI.CT.S_ITS ---
PROCEDURE: CT ABDOMEN PELVIS W CON INDICATIONS: Lower abdominal pain, unspecified TECHNIQUE: After the administration of oral and intravenous contrast, 5 mm thick sections acquired from the diaphragms to the symphysis. 5 mm thick coronal and sagittal reformats were performed. For radiation dose reduction, the following was used: automated exposure control, adjustment of mA and/or kV according to patient size. COMPARISON: None. FINDINGS: Image quality: Excellent. ABDOMEN: Lung bases: Lung bases are clear. 9 millimeter calcified granuloma in the left lung base. Heart size is normal. Solid organs: Liver is normal in size and enhancement. Gallbladder is contracted, but within normal limits Biliary system is non-dilated. Pancreas enhances normally. Spleen is normal in size and enhancement. 0.9 centimeter right adrenal nodule with density measurements of 52 Hounsfield units. Kidneys are normal in size and enhancement, without hydronephrosis. Peritoneum and bowel: Stomach, small bowel, and colon loops are normal in caliber and wall thickness. Few scattered diverticuli with no evidence of diverticulitis. No free fluid or air. Appendix is normal. Nodes and vessels: No retroperitoneal or mesenteric adenopathy. Aorta and inferior vena cava are normal in caliber. Miscellaneous: No ventral hernias. PELVIS: Genitourinary: Bladder wall thickness is normal. Miscellaneous: No inguinal adenopathy. Small bilateral fat containing inguinal hernias. Bones: No suspicious bony lesions. No vertebral body compression fractures. Spine degenerative disc disease and facet arthropathy. IMPRESSION: 1. No acute disease process. 2. Small bilateral fat containing inguinal hernias. 3. Appendix is normal. 4. Colonic diverticulosis without evidence of diverticulitis. 5. No free fluid or free air. 6. No dilated loops of bowel. 7. 0.9 centimeters soft tissue density right adrenal nodule. Recommend dedicated adrenal protocol CT or MRI for definitive characterization. Dictated by: Cheryl Birch MD, PhD on 07/05/2020 at 16:36 Approved by: Cheryl Birch MD, PhD on 07/05/2020 at 16:53
== END ==
PROVIDERS: PCP Student in an Organized Health Care Education/Training Program; Referring Provider Student in an Organized Health Care Education/Training Program; Visit Provider Student in an Organized Health Care Education/Training Program
DX: R10.30 Lower abdominal pain, unspecified (principal); R19.4 Change in bowel habit; K57.90 Diverticulosis of intestine, part unspecified, without perforation or abscess without bleeding; K40.20 Bilateral inguinal hernia, without obstruction or gangrene, not specified as recurrent
CPT/HCPCS: 74177; Q9967

== ENCOUNTER → 2021-04-19 07:01 | Outpatient (CLI) | payer OTHER, SELFPAY ==
[2021-04-19 08:20] LABS: Add Manual Diff / Slide Review NO; Basophils Absolute Auto 100 /uL (0-100); Basophils Percent Auto 0.9 % (0-2); Eosinophils Absolute Auto 200 /uL (0-450); Eosinophils Percent Auto 3.7 % (2-4); Hemoglobin 18.1 g/dL (13.5-17.5); Lymphocytes Absolute Auto 1800 /uL (1100-4500); Lymphocytes Percent Auto 31.6 % (25-40); Mean Corpuscular HGB Conc 33.6 % (30-36); Mean Corpuscular Hemoglobin 30.2 PG (26-34); Mean Corpuscular Volume 90.1 fL (80-100); Monocytes Absolute Auto 700 /uL (0-900); Monocytes Percent Auto 13.1 % (3-14); Neutrophils Absolute Auto 2800 /uL (1500-7000); Neutrophils Percent Auto 50.7 % (50-75); Platelet Count 143 X10^3/uL (150-400); Red Blood Cell Count 5.99 X10^6/uL (4.5-5.9); Red Cell Distribution Width 13.9 % (11.6-14.8); White Blood Cell Count 5.6 X10^3/uL (4.5-11.0)
[2021-04-19 08:47] LABS: Alanine Aminotransferase 48 IU/L (<50); Albumin 4.6 g/dL (3.5-5.0); Albumin Globulin Ratio 1.5 (1.0-2.8); Alkaline Phosphatase 23 U/L (38-126); Aspartate Aminotransferase 35 IU/L (17-59); BUN Creatinine Ratio 19.3 (6-22); Blood Urea Nitrogen 23 mg/dL (9-20); Calcium 10.2 mg/dL (8.4-10.2); Carbon Dioxide 33 mmol/L (22-32); Chloride 101 mmol/L (98-107); Cholesterol 187 mg/dL (140-199); Estimated Glomerular Filt Rate > 60.0 mL/min (>60); Globulin 3.1 g/dL (1.7-4.1); Glucose 105 mg/dL (70-100); HDL Cholesterol 31 mg/dL (40-60); HEMOLYSIS < 15 (0-50); LDL Cholesterol Calculated 110 mg/dL (<100); Potassium 4.4 mmol/L (3.4-5.1); Sodium 139 mmol/L (137-145); Total Protein 7.7 g/dL (6.3-8.2); Triglycerides 229 mg/dL (35-150)
== END ==
PROVIDERS: PCP Physician Assistant; Referring Provider Physician Assistant; Visit Provider Physician Assistant
DX: D75.1 Secondary polycythemia (principal); I10 Essential (primary) hypertension; E78.5 Hyperlipidemia, unspecified
CPT/HCPCS: 36415; 80053; 80061; 85025

== ENCOUNTER 2021-05-24 12:00 | Outpatient (CLI) | payer OTHER, SELFPAY | END 2021-05-29 10:21 | disposition home or self-care (01) | LOC: PHYS 12:02 | PROVIDERS: Family Provider Physician Assistant; PCP Physician Assistant; Referring Provider Physician Assistant; Visit Provider Physician Assistant | DX: G56.03 Carpal tunnel syndrome, bilateral upper limbs (principal) | CPT/HCPCS: 95885; 95886; 95913 ==

== ENCOUNTER → 2021-05-29 14:29 | Outpatient (CLI) | payer OTHER, SELFPAY ==
[2021-05-31 09:27] LABS: QuantiFERON Mitogen Value >10.00 IU/mL (.); QuantiFERON Nil Value 0.04 IU/mL (.); QuantiFERON TB Gold Plus Negative (Negative); QuantiFERON TB1 Ag Value 0.05 IU/mL (.); QuantiFERON TB2 Ag Value 0.05 IU/mL (.)
== END ==
PROVIDERS: Family Provider Physician Assistant; PCP Physician Assistant; Referring Provider Physician Assistant; Visit Provider Physician Assistant
DX: Z11.1 Encounter for screening for respiratory tuberculosis (principal)
CPT/HCPCS: 36415; 86480

== ENCOUNTER → 2021-10-17 09:58 | Outpatient (CLI) | payer OTHER, SELFPAY ==
[2021-10-17 14:12] LABS: 585 Gram Check PASS; Dizziness NO; Postdiastolic BP 83; Postsystolic BP 139; Prediastolic 89; Presystolic 143; Pulse 85; Site of phlebotomy RAC; Swelling NO; Temperature 98.3; Zero Check Sebra Scale PASS
[2021-10-17 14:13] LABS: Therapeutic Phleb Comment NO COMMENT
== END ==
PROVIDERS: Family Provider Physician Assistant; PCP Physician Assistant; Referring Provider Internal Medicine Hematology & Oncology; Visit Provider Internal Medicine Hematology & Oncology
DX: D58.2 Other hemoglobinopathies (principal)
CPT/HCPCS: 99195

== ENCOUNTER → 2021-12-22 09:21 | Outpatient (CLI) | payer OTHER, SELFPAY ==
[2021-12-22 10:10] LABS: Add Manual Diff / Slide Review NO; Basophils Absolute Auto 0 /uL (0-100); Eosinophils Absolute Auto 100 /uL (0-450); Eosinophils Percent Auto 1.3 % (2-4); Hematocrit 54.4 % (41-53); Hemoglobin 18.1 g/dL (13.5-17.5); Lymphocytes Absolute Auto 1000 /uL (1100-4500); Lymphocytes Percent Auto 23.1 % (25-40); Mean Corpuscular HGB Conc 33.2 % (30-36); Mean Corpuscular Hemoglobin 29.9 PG (26-34); Mean Corpuscular Volume 90.1 fL (80-100); Monocytes Absolute Auto 300 /uL (0-900); Monocytes Percent Auto 7.5 % (3-14); Neutrophils Absolute Auto 2900 /uL (1500-7000); Neutrophils Percent Auto 67.1 % (50-75); Platelet Count 181 X10^3/uL (150-400); Red Blood Cell Count 6.04 X10^6/uL (4.5-5.9); Red Cell Distribution Width 14.1 % (11.6-14.8); White Blood Cell Count 4.3 X10^3/uL (4.5-11.0)
[2021-12-22 12:44] LABS: Alanine Aminotransferase 28 IU/L (<50); Albumin 4.7 g/dL (3.5-5.0); Albumin Globulin Ratio 1.4 (1.0-2.8); Alkaline Phosphatase 23 U/L (38-126); Aspartate Aminotransferase 27 IU/L (17-59); BUN Creatinine Ratio 12.4 (6-22); Blood Urea Nitrogen 13 mg/dL (9-20); Carbon Dioxide 29 mmol/L (22-32); Chloride 100 mmol/L (98-107); Cholesterol 178 mg/dL (140-199); Estimated Glomerular Filt Rate > 60 mL/min (>60); Globulin 3.3 g/dL (1.7-4.1); Glucose 108 mg/dL (70-100); HDL Cholesterol 37 mg/dL (40-60); HEMOLYSIS 16 (0-50); LDL Cholesterol Calculated 121 mg/dL (<100); Potassium 5.1 mmol/L (3.4-5.1); Sodium 141 mmol/L (137-145); Triglycerides 101 mg/dL (35-150)
[2021-12-22 14:55] LABS: Creatinine Urine Random 64.4 mg/dL
[2021-12-22 15:01] LABS: Microalbumin Urine Random < 0.6 mg/dL (0-1.6)
[2021-12-24 12:36] LABS: PSA Free % 36.3 % (.); PSA, Total 0.8 ng/mL (0.0-4.0)
[2021-12-29 10:51] LABS: Testosterone Fr+Wkly bound 72.3 ng/dL (40.0-250.0); Testosterone, Total 249.2 ng/dL (264.0-916.0)
== END ==
PROVIDERS: Family Provider Physician Assistant; PCP Family Medicine; Referring Provider Family Medicine; Visit Provider Family Medicine
DX: E78.5 Hyperlipidemia, unspecified (principal); I10 Essential (primary) hypertension; E29.1 Testicular hypofunction; D75.1 Secondary polycythemia
CPT/HCPCS: 36415; 80053; 80061; 82043; 82570; 84153; 84154; 84403; 85025